=== PATIENT | male | born 1965 | race Caucasian/White ===

== ENCOUNTER 2017-11-29 12:06 | Emergency (ER) | payer BC, SELFPAY ==
[2017-11-29 12:07] VITALS: BP 124/76; PULSE 63; RESP 17; TEMP 36.9; O2SAT 98; BMI 24.3
--- NOTE | 2017-11-29 12:25 | ED.VISSUMM ---
- ER Visit Summary Date of Service: 11/29/17 Chief Complaint: Right eye injury History of Present Illness: The patient is a 51 M who was hit in the right eye with a tree limb while mowing the yard this morning. He was wearing his glasses at the time. He reports mild blurry vision from the right eye. No significant light sensitivity. Physical Examination: Vital signs are unremarkable. Head neck examination reveals no eyelid edema or erythema. The lateral portion of the right eye reveals a large sub-conjunctival hemorrhage. Pupils equal and reactive. Extraocular movements are fully intact. There is no bony tenderness around the eye. Test Results: [] Emergency Department Course and Treatment: Tetracaine is applied to the right eye. Fluorescein is applied with no uptake. Eyes examined under the slit lamp with no evidence of foreign body or ulceration. Patient will get a tetanus update and we will cover him with gentamicin ophthalmic drops for the next 3 days. Treatment Plan: [] Disposition: Discharge Impression: Subconjunctival hemorrhage right eye This note was generated with [employer] dictation software. It may contain incorrect words, spelling, and punctuation that were not noted in review of the chart prior to signing ED Disposition - Plan for ED Patient: Chief Complaint: Eye Problem Referrals: Care Physician,No Primary [Primary Care Provider] -
--- NOTE | 2017-11-29 12:26 | ED.DEP ---
ED Disposition - Plan for ED Patient: Disposition: Home or Assisted Living Chief Complaint: Eye Problem Instructions: ED Eye Injury Subconj Hemorrhage Referrals: Elier Mccormick MD [STAFF PHYSICIAN] - As Needed Additional Instructions: Gentamicin eye drops - 1 drop to right eye 4x/day for the next 3 days.
--- NOTE | 2017-11-29 12:27 | ED.RN ---
VISUAL ACUITY DONE RT EYE, LT EYE, BILATERAL /C GLASSES. ACUITY 20/15
[2017-11-29] MEDS: Diphth,Pertuss(Acell),Tet Vac 0.5 ML Vial IM (12:41)
[2017-11-29] MEDS: Gentamicin Sulfate 1 OPTH.BTL 1 DRP RIGHT EYE (12:41)
== END 2017-11-29 12:54 | disposition home or self-care (01) ==
PROVIDERS: Emergency Provider Emergency Medicine
DX: H11.31 Conjunctival hemorrhage, right eye (principal); Z72.0 Tobacco use
CPT/HCPCS: 90715; 99282

== ENCOUNTER 2023-08-31 15:11 | Emergency (ER) | payer OTHER, SELFPAY ==
[2023-08-31 15:12] VITALS: BP 121/93; PULSE 64; RESP 14; TEMP 36.9; O2SAT 98; BMI 24.5
--- NOTE | 2023-08-31 15:28 | US_ITS ---
INDICATION: PAIN EXAMINATION: Ultrasound US Abdomen Limited (quadrant) TECHNIQUE: Marie scale and color doppler imaging was performed of the right upper quadrant. COMPARISON: FINDINGS: LIVER: 17.5 cm Hepatopedal portal flow. Hepatic veins are patent. There is normal echotexture. No focal hepatic lesion. There is no free fluid. GALLBLADDER AND BILIARY TREE: No shadowing gallstone, pericholecystic fluid or gallbladder wall thickening is demonstrated. Minimal dependent sludge. The proximal common bile duct measures 4 mm, which is within normal limits for the patient''s age. Songraphic Vega''s sign: None RIGHT KIDNEY: 12.2 cm in length. No hydronephrosis. No shadowing nephrolithiasis. Normal cortical echogenicity without focal thinning or scarring. No evidence of cystic or solid mass. PANCREAS: No focal abnormality is demonstrated in the pancreas. No pancreatic ductal dilatation. Ovoid structures with central hyperechogenicity compatible with lymph node measuring 1.5 x 2.8 x 1.0 cm and 1.7 x 1.8 x 2.4 cm adjacent to the pancreas and liver. US/Gallbladder IMPRESSION: Minimal gallbladder sludge without evidence of cholecystitis. Nonspecific mild periportal adenopathy. Consider follow-up multiphasic contrast-enhanced liver CT to further evaluate when clinically able. Electronically Signed: Lg Vela MD at 17:43 EDT ,
--- NOTE | 2023-08-31 15:29 | EX.ED.DYSGE1 ---
HPI History of Present Illness Chief Complaint: General Illness Narrative Narrative: 57-year-old male who denies significant past medical history presents with his significant other mainly because of nausea and vomiting that has had in the last 24 hours. Complains of epigastric to right upper quadrant abdominal pain as well. Food does not necessarily make it worse. He relates history that about a month and a half ago he had a diffuse rash for which she was seen at urgent care. They put him on prednisone. He also took a course of antibiotics. After that had cleared, he states that he had a thorn in his genital region for which she returned to urgent care, and was put on a stronger antibiotic and prednisone again. While he finished that antibiotic last week, 3 days ago, he had return to urgent care and they had discussed that perhaps the rash that he had had was Lyme disease because a month or so ago he had a tick on him. In discussion with the provider there, as he had no primary care provider, they decided to treat him for Lyme disease and he started doxycycline. Within the last 24 hours he has vomited multiple times without any blood in his emesis. He presents mainly because of the epigastric to right upper quadrant pain and the nausea and vomiting which has mildly improved. [facility] Home Medications ?Medication ?Instructions ?Recorded ?Last Taken ?Type doxycycline hyclate 100 mg capsule 100 mg PO BID 14 days #28 caps 08/29/23 Unknown Rx omeprazole 20 mg capsule,delayed 20 mg PO DAILY #30 CAPSULES 08/31/23 Unknown Rx release ondansetron 4 mg disintegrating 4 mg PO Q6H PRN nausea and 08/31/23 Unknown Rx tablet vomiting #15 tabs Allergy/AdvReac Type Severity Reaction Status Date / Time oxycodone AdvReac Hives Verified 08/31/23 15:16 Family History Other Cancer Surgical History H/O discectomy Social History Smoking Status: Current every day smoker tobacco type: cigarettes alcohol intake: current alcohol intake frequency: 0-2 drinks per day Alcohol type: beer ROS ROS ED ROS Narrative Constitutional: No fever, no chills. Sweaty. HEENT: No sore throat. No neck pain. No loss of vision. No rhinorrhea. Cardiovascular: No chest pain. No palpitations. No pedal edema. Respiratory: No cough, no shortness of breath. Abdominal: Epigastric to right upper quadrant abdominal pain. Multiple episodes of nausea and vomiting. No diarrhea. Mild constipation. Genitourinary: No dysuria. No hematuria. Musculoskeletal: No myalgias. No arthralgias. Neurologic: No headaches. No dizziness. No lightheadedness. Skin: No rash. No change in color. Psychiatric: No depression. No anxiety. EXAM Physical Exam Narrative Exam Narrative: Afebrile. Vital signs noted. HEENT: Normocephalic. Atraumatic. PERRL, EOMI. Neck soft and supple. No point tenderness or step off. Cardiovascular: Regular rate and rhythm. No murmurs, rubs, or gallops appreciated. Respiratory: No tachypnea. Lungs clear to auscultation bilaterally. Gastrointestinal: Abdomen soft, mild tenderness palpation in epigastrium and right upper quadrant with normoactive bowel sounds. No rebound or guarding. Negative Vega sign. Neurological: Awake. Alert. Nonfocal, nonlateralizing. Skin: No rash. Normal color. No pallor. Musculoskeletal: No pedal edema. Full range of motion extremities. Const Vital Signs: 08/31/23 15:12 08/31/23 15:41 Temperature 98.5 F Temperature Source Oral Pulse Rate 64 Respiratory Rate 14 Respiratory Effort Normal Non-Labored Respiratory Pattern Normal Blood Pressure 121/93 H Blood Pressure Mean 102 Pulse Ox 98 Oxygen Delivery Method Room Air MDM MDM MDM Narrative Medical decision making narrative: I had a lengthy discussion with the patient and his significant other. They were discussing Lyme disease. Patient is already on treatment with doxycycline. Given his nausea and vomiting, the differential diagnosis is pancreatitis versus cholecystitis/gallstone pancreatitis versus peptic ulcer disease versus gastritis from doxycycline. He has been on prednisone a few times within the last month as well. Patient will be administered a bolus of normal saline and ondansetron. Will check a CBC, CMP, and lipase to help rule out pancreatitis. Ultrasound gallbladder imaging will be obtained as well to help rule out cholecystitis. He has no lower abdominal pain so I do not think he would benefit from CT imaging instead. I have low concern for obstruction as a cause of his nausea and vomiting. I reviewed his laboratory work and he has normal white count of 5.7, hemoglobin normal at 14.5, hematocrit 42.7. Sodium is slightly low at 132 with normal potassium of 3.8 and chloride 96. This may be mild dehydration from his vomiting, but he was bolused normal saline 1 L intravenously has replacement, BUN is low at 6 with creatinine 0.91. AST T is slightly elevated at 38 with ALT of 82. This is also nonspecific slight elevation. Glucose elevated at 119 with a normal anion gap of 7. Total bilirubin is normal at 0.30. Alk phos also normal at 85. Lipase is normal at 40 so I doubt pancreatitis. Urinalysis is negative for infection. I do not feel antibiotics are indicated, and additionally he is already on doxycycline. I reviewed the radiology report of the gallbladder ultrasound which does comment on gallbladder sludge, but no pericholecystic fluid. Common bile duct normal at 4 mm. There is no enlarged lymph node noted near the liver/pancreas, but no noted pancreatic mass. Radiology suggests outpatient CT. Upon repeat examination, his abdomen remains soft. He was having epigastric pain and cramping. I feel he probably has more of a gastritis as he has been on both prednisone, Medrol Dosepak, and this is his third round of antibiotics for various things. I feel he be discharged to follow-up with his primary care provider. I wrote him prescriptions for both omeprazole, and for Zofran. He was also referred to gastroenterology as needed. At this point in time, I do not feel he requires observation or admission. I feel he can be discharged to follow-up. Return instructions to the emergency department were reviewed. Disposition is discharged home in stable condition. History & Record Review Discussion w/independent historian: Patient Lab Data Attestation: I reviewed the patient's lab results. Labs: Laboratory Results - last 24 hr 08/31/23 08/31/23 15:40 16:29 WBC 5.7 RBC 4.86 Hgb 14.5 Hct 42.7 MCV 87.9 MCH 29.8 MCHC 34.0 RDW Std Deviation 40.7 RDW Coeff of Manohar 12.6 Plt Count TNP MPV 11.7 Immature Gran % (Auto) 0.500 Neut % (Auto) 54.2 Lymph % (Auto) 32.3 Lyman % (Auto) 10.6 H Eos % (Auto) 2.1 Baso % (Auto) 0.3 Absolute Neuts (auto) 3.1 Absolute Lymphs (auto) 1.85 Nucleated RBC % 0 Differential Comment SCANNED Platelet Estimate ADEQUATE Sodium 132 L Potassium 3.8 Chloride 96 L Carbon Dioxide 29.0 Anion Gap 7 BUN 6 L Creatinine 0.91 Estim Creat Clear Calc 90.25 Est GFR (MDRD) Af Amer 110 Est GFR (MDRD) Non-Af 91 BUN/Creatinine Ratio 6.6 L Glucose 119 H Calcium 9.6 Total Bilirubin 0.30 AST 38 H ALT 82 H Alkaline Phosphatase 85 Total Protein 7.8 Albumin 3.2 Globulin 4.6 H Albumin/Globulin Ratio 0.7 L Lipase 40 Urine Color Yellow Urine Clarity Clear Urine pH 6.5 Ur Specific [place] 1.010 Urine Protein Negative Urine Glucose (UA) Normal Urine Ketones Negative Urine Occult Blood Negative Urine Nitrite Negative Urine Bilirubin Negative Urine Urobilinogen Normal Ur Leukocyte Esterase Negative Urine RBC 0 SEEN Urine WBC 0 SEEN Ur Squamous Epith Cells 0 SEEN Urine Bacteria 0 SEEN Urine Mucus 0 SEEN Radiography Diagnostic Testing: Clinical Impression(s) from Imaging Studies Gallbladder Ultrasound 08/31/23 15:28 IMPRESSION: Minimal gallbladder sludge without evidence of cholecystitis. Nonspecific mild periportal adenopathy. Consider follow-up multiphasic contrast-enhanced liver CT to further evaluate when clinically able. Electronically Signed: Lg Vela MD at 17:43 EDT Reading Location ID and State: [address] [place] [address] Tel , Service support , Discharge Plan Triage Chief Complaint: General Illness ED Provider: Nito Ayon Dx/Rx/DC Orders Clinical Impression: Nausea and vomiting, Gastritis, Epigastric pain Instructions: ED Gastritis (Adult) Prescriptions: New omeprazole 20 mg capsule,delayed release(DR/EC) 20 mg PO DAILY Qty: 30 0RF ondansetron 4 mg tablet,disintegrating 4 mg PO Q6H PRN (Reason: nausea and vomiting) Qty: 15 0RF No Action doxycycline hyclate 100 mg capsule 100 mg PO BID 14 Days Qty: 28 0RF Primary Care Provider: Care Physician,No Primary Referrals: Chelsea Rhodes MD [Med Staff - Active Staff] - Keep Javed appointment Friend,Thai, DO [Med Staff - Active Staff] - As soon as possible Care Physician,No Primary [Primary Care Provider] - Activity Restrictions/Additional Instructions: Continue your doxycycline as previously directed but make sure that you are taking it with food. Return with increased vomiting, new or worsening symptoms. Print Language: Thai Disposition Disposition: Home, Self Care
[2023-08-31] MEDS: 0.9% Normal Saline (1000mL) 1,000 ML 999 ML IV (15:42)
[2023-08-31] MEDS: Ondansetron 4 MG/2 ML Vial IV (15:43)
[2023-08-31 15:51] LABS: Absolute Lymphocyte Count 1.85 X10^3/uL (0.83-4.51); Absolute Neutrophil Count 3.1 X10^3/uL (2.0-7.7); Basophil# 0.02 X10^3/uL; Basophil% 0.3 % (0-1); Eosinophil# 0.12 X10^3/uL; Eosinophils% 2.1 % (0-5); Hematocrit 42.7 % (40-54); Hemoglobin 14.5 g/dL (13.0-16.5); Lymphocyte # 1.85 X10^3/ul (0.83-4.51); Lymphocyte % 32.3 % (19-41); Mean Corpuscular Hgb 29.8 pg (27.0-32.0); Mean Corpuscular Volume 87.9 fL (80-94); Mean Platelet Vol. 11.7 fl (6.2-12.0); Monocyte# 0.61 X10^3/uL; Monocyte% 10.6 % (0-10); NRBC Flagged by Analyzer 0 % (0-5); Neutrophil % 54.2 % (47-70); POSITIVE COUNT YES; POSITIVE MORPHOLOGY YES; RBC Distribution Width CV 12.6 % (11.6-14.6); RBC Distribution Width SD 40.7 fl (35.1-43.9); Red Blood Count 4.86 M/mm3 (4.6-6.2); White Blood Count 5.7 K/mm3 (4.4-11.0)
[2023-08-31 15:54] LABS: Differential Indicated SCAN CRITERIA MET
[2023-08-31 16:10] LABS: ALB/GLOB Ratio 0.7 RATIO (0.9-2.4); AST(SGOT) 38 U/L (15-37); Alanine Aminotransfer ALT/SGPT 82 U/L (16-61); Albumin, Serum 3.2 g/dL (3.2-5.0); Alkaline Phosphatase 85 U/L (45-117); Anion Gap 7 (5-15); BUN 6 mg/dL (7-18); BUN/Creat Ratio 6.6 RATIO (10-20); Calcium,Total 9.6 mg/dL (8.5-10.1); Chloride 96 mmol/L (98-107); Creatinine, Serum 0.91 mg/dL (0.70-1.30); EST Glomerular Filtration Rate 91 mL/min (>60); Est Glom Filt Rate - Afr Amer 110 mL/min (>60); Estimated Creatinine Clearance 90.25 ml/min; Globulin 4.6 g/dL (2.2-4.2); Glucose 119 mg/dL (74-106); Lipase 40 U/L (13-75); Potassium 3.8 mmol/L (3.5-5.1); Protein, Total 7.8 g/dL (6.4-8.2); Sodium Level 132 mmol/L (136-145)
[2023-08-31 16:25] LABS: Differential Comment SCANNED; Platelet Estimate ADEQUATE (ADEQ)
[2023-08-31 16:33] LABS: Bacteria 0 SEEN /hpf (None Seen); Mucous, Urine 0 SEEN /hpf (<or=2+); Red Blood Cells-Urine 0 SEEN /hpf (0-5); Squamous Epithelial Cells - UA 0 SEEN /hpf (0-5); White Blood Cells 0 SEEN /hpf (0-5)
[2023-08-31 16:34] LABS: Color, Urine Yellow (Yellow); Glucose, Dipstick Normal (Normal); Ketone-Dipstick Negative (Negative); Leukocyte Esterase-Dipstick Negative /ul (Negative); Nitrite-Dipstick Negative (Negative); Occult Blood-Urine Negative /ul (Negative); Protein-Dipstick Negative (Negative); Urine Bilirubin Dipstick Negative (Negative); Urine Clarity Clear (Clear); Urine Urobilinogen Normal (Normal); Urine pH 6.5 (5.0 - 8.0)
[2023-08-31] MEDS: Mag Hydrox/Al Hydrox/Simeth 30 ML UDC PO (17:31)
[2023-08-31] MEDS: Lidocaine 2% Viscous15 ML UDC 15 ML PO (17:31)
[2023-08-31 18:05] VITALS: BP 124/78; PULSE 60; RESP 17; TEMP 36.8; O2SAT 96
== END 2023-08-31 18:09 | disposition home or self-care (01) ==
PROVIDERS: Emergency Provider Emergency Medicine; Visit Provider Emergency Medicine
DX: R11.2 Nausea with vomiting, unspecified (principal); K29.70 Gastritis, unspecified, without bleeding; F17.210 Nicotine dependence, cigarettes, uncomplicated; R10.13 Epigastric pain
CPT/HCPCS: 76705; 80053; 81001; 83690; 85025; 96361; 96374; 99284; J7030; A4216; J2405

== ENCOUNTER → 2023-09-12 | Outpatient (CLI) | payer OTHER, SELFPAY ==
[2023-09-12 11:02] LABS: Cholesterol 231 mg/dL (200); Hemoglobin A1c 5.9 % (3.8-5.6); High Density Lipoprotein 38 mg/dL; PSA,Total - Annual Screen 1.34 ng/mL (0.00-4.00); Thyroid Stim Hormone (TSH) 2.69 uIU/mL (0.358-3.74); Triglycerides 123 mg/dL; Very Low Density Lipoprotein 25 mg/dL (5-40)
[2023-09-12 11:47] LABS: HIV - WCH Non-Reactive (Nonreactive); Hepatitis C Antibody Non-Reactive (Nonreactive)
[2023-09-18 11:08] LABS: Testosterone, % Free 2.85 % (1.50-4.20); Testosterone, Free 17.78 ng/dL (5.00-21.00); Testosterone, Total 624 ng/dL (264-916)
== END | disposition home or self-care (01) ==
PROVIDERS: PCP Internal Medicine; Referring Provider Nurse Practitioner; Visit Provider Nurse Practitioner
DX: Z00.00 Encounter for general adult medical examination without abnormal findings (principal); R53.83 Other fatigue; R74.8 Abnormal levels of other serum enzymes
CPT/HCPCS: 36415; 80061; 83036; 84153; 84402; 84403; 84443; 86703; 86803; G0103

== ENCOUNTER → 2023-09-25 | Outpatient (CLI) | payer OTHER, SELFPAY ==
--- NOTE | 2023-09-25 07:00 | CT_ITS ---
STUDY: CT ABDOMEN AND PELVIS WITH AND WITHOUT CONTRAST REASON FOR EXAM: Male, 57 years old. ABDOMINAL PAIN. PERIPORTAL ADENOPATHY RADIATION DOSAGE (If Supplied By Facility): CTDIvol = ( 12.26 ) mGy, DLP = ( 1466.36 ) mGycm TECHNIQUE: Transaxial images were obtained from the dome of the diaphragm to the symphysis pubis without oral contrast. IV 100mL Isovue-370 was administered. Sagittal and coronal images were reconstructed. Individualized dose optimization techniques were used for this CT. COMPARISON: None. FINDINGS: The visualized lung bases are unremarkable. The visualized portions of the heart are within normal limits. There is a 7 mm cyst in the superior aspect of the right lobe of the liver. Normal gallbladder and extrahepatic biliary system. Normal spleen. Normal pancreas. Normal bilateral adrenal glands. Normal right kidney. Findings suggestive of 1.6 cm x 1.8 cm cyst in the upper anterior pole of the left kidney. There is a small hiatal hernia. Normal small intestine. Normal colon. The appendix is visualized and appears normal. There is diffuse atherosclerotic calcification of the abdominal aorta, without a demonstrated aneurysm. Normal inferior vena cava. Normal retroperitoneum. Normal urinary bladder. Normal abdominal wall. There are diffuse degenerative changes of the visualized lumbar spine. 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 CT/CT Abd/Pelvis W/WO Contrast IMPRESSION: 7 mm cyst in the superior aspect of the right lobe of liver. Left renal cyst. No definite periportal adenopathy is seen. Electronically Signed: Max Fontenot MD at 9:40 EDT ,
--- NOTE | 2023-09-25 07:20 | CT_ITS ---
STUDY: LOW DOSE CT LUNG CANCER SCREENING REASON FOR EXAM: Male, 57 years old. SMOKER X 30 YEARS. 1.5 PPD RADIATION DOSAGE (If Supplied By Facility): CTDIvol = ( 3.02 ) mGy, DLP = ( 103.82 ) mGycm TECHNIQUE: No contrast was administered. Low dose technique was utilized (average mAS-38 and kVp 120). 1.25 mm axial source images with a slice interval of 1.25-mm were reconstructed in lung windows. 2.5 mm axial source images with a slice interval of 2.5-mm were reconstructed in lung windows. 5.0 mm axial source images with a slice interval of 5.0-mm were reconstructed in soft tissue windows. COMPARISON: None. NODULES: No suspicious nodules are seen. Emphysema: Mild degree of emphysematous changes. Endobronchial lesion: None Aorta: Mild atherosclerotic calcified plaques of the aortic arch. CORONARY ARTERIES: Coronary artery calcification is seen. Heart: Unremarkable Pulmonary artery: Unremarkable Mediastinal nodes: Small mediastinal lymph nodes. Other chest and abdominal findings: CT/Low Dose CT Lung Screening IMPRESSION: Lung-RADS category 2 - Continue annual screening with LDCT in 12 months. IMPORTANT NOTES FOR USE: ACR Lung-RADS Version 1.1 Assessment Categories Release Date: 2018 Category: Coded 0-4 bases on nodule(s) with highest degree of suspicion. Negative screen is defined as categories 1 and 2; a positive screen is defined as categories 3 and 4. Category 3 and 4A nodules that are unchanged on interval CT should be coded as category 2, and individuals returned to screening in 12 months. Category 4X: Category 3 or 4 nodules with additional imaging findings that increase the suspicion of lung cancer, such as spiculation, GGN that doubles in size in 1 year, enlarged lymph notes, etc. Category Modifiers: S (significant finding unrelated to lung cancer) Electronically Signed: Max Fontenot MD at 9:57 EDT ,
== END | disposition home or self-care (01) ==
PROVIDERS: PCP Internal Medicine; Referring Provider Physician Assistant; Visit Provider Physician Assistant
DX: Z12.2 Encounter for screening for malignant neoplasm of respiratory organs (principal); R10.13 Epigastric pain
CPT/HCPCS: 71271; 74178; Q9967

== ENCOUNTER → 2023-11-06 | Outpatient (CLI) | payer OTHER, SELFPAY ==
--- NOTE | 2023-11-06 16:16 | STRESSREP_ITS ---
Stress Test Report Date: 11/06/2023 Procedure: Exercise tolerance test/imaging study Indications: Chest pain Consent: Per the patient Procedure: The patient exercised on a Freeman protocol for 10 minutes achieving a peak heart rate of 166 bpm (103% predicted maximal heart rate) with a peak blood pressure 202/70 mmHg and a peak MET capacity of 13.4 METs. The baseline ECG demonstrated sinus bradycardia. The peak exercise ECG demonstrated no significant ischemic changes. EKG during recovery revealed no significant ischemic changes [There were no cardiac dysrhythmias pretest, during exercise, or recovery]. The functional capacity was considered excellent for age. There was [no complaint of chest discomfort during exercise or recovery]. The examination was discontinued secondary to achieving target heart rate. Impression: 1. Technically adequate (percent predicted maximal heart rate greater than 85%) exercise tolerance test 2. Stress test is negative for exercise-induced EKG changes of ischemia 3. The test test is negative for exercise-induced chest pain 4. Functional capacity is excellent for age 5. Nuclear images pending Myocardial perfusion imaging study: Technique: The patient was injected with 11.9 mCi of technetium 99m Cardiolite and subsequently rest SPECT Cardiolite nuclear imaging was obtained in the h orizontal long, vertical long, and short axis views. The patient exercised on a Freeman protocol. Please see above for details. The patient was injected with 34.2 mCi of technetium 99m Cardiolite and subsequently stress SPECT Cardiolite nuclear imaging was obtained in the horizontal long, vertical long, and short axis views. A gated Cardiolite study at peak stress was obtained. Interpretation: Rest and stress SPECT Cardiolite nuclear imaging status post realignment, normalization, and attenuation correction, demonstrates no evidence of significant ischemia or infarction. The gated Cardiolite study demonstrates no significant regional wall motion abnormalities. The reported LVEF is 65%. Impression: 1. There is no evidence of significant ischemia or infarction. 2. The gated Cardiolite study reports an LVEF of 65%. This note was generated with [employer] software. It may contain incorrect words, spelling, and punctuation that were not noted in checking the note before signing.
== END | disposition home or self-care (01) ==
LOC: CVS 06:20
PROVIDERS: PCP Internal Medicine; Referring Provider Nurse Practitioner; Visit Provider Nurse Practitioner
DX: R07.9 Chest pain, unspecified (principal)
CPT/HCPCS: 78452; 93017; A9500; A4216

== ENCOUNTER 2023-11-18 14:39 | Emergency (ER) | payer OTHER, SELFPAY ==
[2023-11-18] VITALS (8 sets, daily range): BP systolic 131–146; BP diastolic 84–102; PULSE 49–80; RESP 14–18; TEMP 35.9–36.6; O2SAT 97–100; BMI 25.1
--- NOTE | 2023-11-18 14:45 | EKG12_ITS ---
Test Reason : Blood Pressure : / mmHG Vent. Rate : 058 BPM Atrial Rate : 058 BPM P-R Int : 160 ms QRS Dur : 092 ms QT Int : 424 ms P-R-T Axes : 083 084 074 degrees QTc Int : 416 ms Sinus bradycardia Otherwise normal ECG Confirmed by ALEC FRANCES, MITCH ([id number]), commercial production editor GENESIS WADE ([id number]) on 11/20/2023 1:43:28 PM Referred By: Confirmed By:MITCH MICHAEL MD
[2023-11-18 15:09] LABS: Absolute Neutrophil Count 5.2 X10^3/uL (2.0-7.7); Basophil# 0.05 X10^3/uL; Basophil% 0.6 % (0-1); Eosinophil# 0.17 X10^3/uL; Hematocrit 42.2 % (40-54); Hemoglobin 14.4 g/dL (13.0-16.5); Lymphocyte % 27.3 % (19-41); Mean Corp Hgb Conc 34.1 g/dL (32-36); Mean Corpuscular Hgb 30.3 pg (27.0-32.0); Mean Corpuscular Volume 88.8 fL (80-94); Mean Platelet Vol. 10.9 fl (6.2-12.0); Monocyte# 0.73 X10^3/uL; Monocyte% 8.7 % (0-10); NRBC Flagged by Analyzer 0 % (0-5); Neutrophil # 5.16 X10^3/uL (2.7-7.7); Neutrophil % 61.3 % (47-70); Platelet Count 215 K/mm3 (150-450); RBC Distribution Width CV 13.7 % (11.6-14.6); RBC Distribution Width SD 44.9 fl (35.1-43.9); Red Blood Count 4.75 M/mm3 (4.6-6.2); White Blood Count 8.4 K/mm3 (4.4-11.0)
[2023-11-18 15:19] LABS: Prothrombin Time (Protime)PT. 13.4 SECONDS (11.7-14.9)
[2023-11-18 15:20] LABS: Partial Thromboplast Time 31.8 Seconds (24.1-36.2)
[2023-11-18 15:21] LABS: Anion Gap 6 (5-15); BUN 13 mg/dL (7-18); BUN/Creat Ratio 14.4 RATIO (10-20); Calcium,Total 9.5 mg/dL (8.5-10.1); Chloride 104 mmol/L (98-107); EST Glomerular Filtration Rate 91 mL/min (>60); Est Glom Filt Rate - Afr Amer 110 mL/min (>60); Glucose 129 mg/dL (74-106); Potassium 3.6 mmol/L (3.5-5.1); Sodium Level 138 mmol/L (136-145)
--- NOTE | 2023-11-18 17:11 | NURSING ---
NO OLD EKG
--- NOTE | 2023-11-18 17:20 | RAD_ITS ---
STUDY: X-RAY CHEST REASON FOR EXAM: Male, 57 years old. Stroke TECHNIQUE: AP portable COMPARISON: None. FINDINGS: The lungs are clear and expanded. There is no demonstrated pleural abnormality. Normal size heart. Normal mediastinum and yolis. Normal visualized pulmonary arteries. Normal visualized aortic arch and descending thoracic aorta. Normal visualized thoracic spine. Normal visualized ribs, clavicles, and shoulders. There is no demonstrated abnormality of the visualized soft tissue structures of the upper abdomen. RAD/Chest 1 View (Portable) IMPRESSION: Normal x-ray examination of the chest. Electronically Signed: José Demarco MD at 18:07 EDT ,
--- NOTE | 2023-11-18 17:46 | CT_ITS ---
STUDY: CT BRAIN WITHOUT CONTRAST REASON FOR EXAM: Male, 57 years old. disequlibrium RADIATION DOSAGE (If Supplied By Facility): CTDIvol = ( 44.99 ) mGy, DLP = ( 812.98 ) mGycm TECHNIQUE: Transaxial CT imaging of the brain was performed without administration of intravenous contrast material. Individualized dose optimization techniques were used for this CT. COMPARISON: No relevant priors. FINDINGS: Normal soft tissue structures. Normal calvarium. Normal size ventricles and extra-axial spaces for the patient''s age. Normal white matter tracts of the cerebral hemispheres. Normal basal ganglia and thalami. Normal brainstem. Normal cerebellum. There is no intracranial hemorrhage. There are no findings of an acute ischemic infarction. Normal visualized paranasal sinuses. CT/Brain/Head without Contrast IMPRESSION: Normal unenhanced CT scan of the brain. If concern for acute infarct MRI recommended Electronically Signed: José Demarco MD at 19:05 EDT ,
--- NOTE | 2023-11-18 18:58 | EDS_ITS ---
HPI History of Present Illness Chief Complaint: Neuro S/Sx Narrative Narrative: 57-year-old male presents with disequilibrium and feeling like he has an abnormal gait for the last 4 days. He states his symptoms started on Friday and have been relatively constant. He denies any fevers or chills, no headache, no chest pain or shortness of breath, no other symptoms. He states when he feels like he is walking he is off balance and almost drunk. He states he called his primary care provider and they were unable to see him and they told him to go to urgent care. He states urgent care sent him here. He states he has no other symptoms except for even when he went to work today and when he was walking he felt off balance. No recent fevers or chills, no nausea or vomiting. [facility] Medical History Gallbladder sludge Irritant contact dermatitis due to plant Skin irritation Fatigue Screening for lung cancer Lesion of penis Elevated liver enzymes Tobacco abuse Tinnitus Renal cyst Coronary artery calcification Hyperlipidemia Chest pain Liver cyst Home Medications ?Medication ?Instructions ?Recorded ?Last Taken ?Type cyanocobalamin (vitamin B-12) 1,000 mcg PO BID 10/10/23 Unknown History 1,000 mcg capsule lactobacillus combination no.9 4 4,000 mmu cells PO DAILY 10/10/23 Unknown His tory billion cell capsule (Adult 50 Plus Probiotic) multivitamin (Daily Multi-Vitamin 1 tab PO DAILY 10/10/23 Unknown History tablet) omega 9-ydy-gis-fish oil 60 mg-90 1 cap PO DAILY 10/10/23 Unknown History mg-500 mg capsule (Fish Oil) varenicline 0.5 mg (11)-1 mg (42) See Rx Instructions PO PER PKG DIR 10/10/23 Unknown Rx tablets in a dose pack #53 tabs Allergy/AdvReac Type Severity Reaction Status Date / Time oxycodone AdvReac Hives Verified 11/18/23 14:40 Family History Mother Breast cancer Afib Brother Diabetes CVA (cerebral vascular accident) Other Cancer Surgical History H/O discectomy Social History adopted: No household members: none number of children: 2 current occupational status: employed current occupation: [employer] pets and animals: No sexually active: Yes Smoking Status: Current every day smoker tobacco type: cigarettes Tobacco: How many years used: 37 alcohol intake: former substance use type: does not use caffeine: Yes (3) Type: coffee frequency: daily do you feel safe at home: Yes ROS ROS ED ROS Narrative Constitutional: No fever, no chills. HEENT: No sore throat. No neck pain. No loss of vision. No rhinorrhea. Cardiovascular: No chest pain. No palpitations. No pedal edema. Respiratory: No cough, no shortness of breath. Abdominal: No abdominal pain. No nausea. No vomiting. Genitourinary: No dysuria. No hematuria. Musculoskeletal: No myalgias. No arthralgias. Neurologic: No headaches. No dizziness. No lightheadedness. Feels off balance when walking. Skin: No rash. No change in color. Psychiatric: No depression. No anxiety. EXAM Physical Exam Narrative Exam Narrative: Afebrile. Vital signs noted. HEENT: Normocephalic. Atraumatic. PERRL, EOMI. Neck soft and supple. No point tenderness or step off. Cardiovascular: Regular rate and rhythm. No murmurs, rubs, or gallops appreciated. Respiratory: No tachypnea. Lungs clear to auscultation bilaterally. Gastrointestinal: Abdomen soft, nontender, with normoactive bowel sounds. No rebound or guarding. Neurological: Awake. Alert. Nonfocal, nonlateralizing. Cerebellar functioning is normal with normal [id number] and normal [id number]-blor. Skin: No rash. Normal color. No pallor. Musculoskeletal: No pedal edema. Full range of motion extremities. Const Vital Signs: 11/18/23 14:40 11/18/23 17:19 11/18/23 17:20 Temperature 96.7 F L Temperature Source Temporal Pulse Rate 80 55 L Pulse Rate [Lying] Pulse Rate [Sitting (for 1 minute prior to obtaining)] Pulse Rate [Standing (for 1 minute prior to obtaining)] Respiratory Rate 16 15 Blood Pressure 142/93 H 137/99 H Blood Pressure [Lying] Blood Pressure [Sitting (for 1 minute prior to obtaining)] Blood Pressure [Standing (for 1 minute prior to obtaining)] Blood Pressure Mean 109 111 Blood Pressure Mean [Lying] Blood Pressure Mean [Sitting (for 1 minute prior to obtaining)] Blood Pressure Mean [Standing (for 1 minute prior to obtaining)] Pulse Ox 97 98 Oxygen Delivery Method Room Air Room Air Room Air 11/18/23 18:00 11/18/23 18:00 11/18/23 18:47 Temperature Temperature Source Pulse Rate 56 L 53 L Pulse Rate [Lying] Pulse Rate [Sitting (for 1 minute prior to obtaining)] Pulse Rate [Standing (for 1 minute prior to obtaining)] Respiratory Rate 15 15 Blood Pressure 140/84 H 140/84 H 142/88 H Blood Pressure [Lying] Blood Pressure [Sitting (for 1 minute prior to obtaining)] Blood Pressure [Standing (for 1 minute prior to obtaining)] Blood Pressure Mean 101 101 105 Blood Pressure Mean [Lying] Blood Pressure Mean [Sitting (for 1 minute prior to obtaining)] Blood Pressure Mean [Standing (for 1 minute prior to obtaining)] Pulse Ox 100 Oxygen Delivery Method 11/18/23 18:49 11/18/23 18:51 11/18/23 19:00 Temperature Temperature Source Pulse Rate 62 49 L Pulse Rate [Lying] 53 L Pulse Rate [Sitting (for 1 minute prior to obtaining)] 55 L Pulse Rate [Standing (for 1 minute prior to obtaining)] 60 Respiratory Rate 16 14 Blood Pressure 138/84 H 146/84 H Blood Pressure [Lying] 140/84 H Blood Pressure [Sitting (for 1 minute prior to obtaining)] 142/88 H Blood Pressure [Standing (for 1 minute prior to obtaining)] 138/84 H Blood Pressure Mean 98 104 Blood Pressure Mean [Lying] 102 Blood Pressure Mean [Sitting (for 1 minute prior to obtaining)] 106 Blood Pressure Mean [Standing (for 1 minute prior to obtaining)] 102 Pulse Ox 97 Oxygen Delivery Method MDM MDM MDM Narrative Medical decision making narrative: Differential diagnosis includes intravascular volume depletion versus vertigo versus stroke. I have low suspicion for stroke as his cerebellar functioning is normal, and he essentially has an NIH stroke scale of 0. ED protocol labs were obtained and reviewed. EKG was obtained and interpreted by myself independently as sinus bradycardia at 58 bpm without ectopy or acute ST changes. No STEMI. Orthostatics are negative. I reviewed his laboratory work and he has normal white count of 8.4 with hemoglobin normal at 14.4, hematocrit 42.2, platelet count normal at 215. Coagulation studies are negative with an INR of 1.0 and a PTT of 31.8. BUN normal at 13 with creatinine 0.90, no evidence of dehydration. Glucose is elevated at 129 with an anion gap normal at 6. Sodium normal at 138 and potassium normal at 3.6. I obtained a CT of the brain, and reviewed the radiology report. There is no evidence of an acute process. Additionally, chest x-ray 1 view interpreted by myself independently shows no pneumonia or pneumothorax. I reviewed the radiology report which confirms my independent interpretation. Upon repeat examination at approximately 7:45 PM, he is resting comfortably on the cot. His significant other is at the bedside and she states that they went somewhere and he was walking as if he were drunk, and almost tripped and fell with an unsteady gait. He will be ambulated here. This does not sound like he has peripheral vertigo where meclizine would be helpful as he is not having any spinning sensation and is really only when he is standing and walking. RN reports the patient had a steady gait, and patient stated to me that he felt fine. Is very only intermittent and unpredictable when it happens when he is walking. At this point in time, I feel he can be discharged to follow-up with his primary care provider as he has a steady gait here. Return instructions to the emergency department were reviewed. Disposition is discharged home in stable condition. History & Record Review Discussion w/independent historian: Patient Lab Data Attestation: I reviewed the patient's lab results. Labs: Laboratory Results - last 24 hr 11/18/23 15:00 WBC 8.4 RBC 4.75 Hgb 14.4 Hct 42.2 MCV 88.8 MCH 30.3 MCHC 34.1 RDW Std Deviation 44.9 H RDW Coeff of Manohar 13.7 Plt Count 215 MPV 10.9 Immature Gran % (Auto) 0.100 Neut % (Auto) 61.3 Lymph % (Auto) 27.3 Orange % (Auto) 8.7 Eos % (Auto) 2.0 Baso % (Auto) 0.6 Absolute Neuts (auto) 5.2 Absolute Lymphs (auto) 2.30 Nucleated RBC % 0 PT 13.4 INR 1.0 APTT 31.8 Sodium 138 Potassium 3.6 Chloride 104 Carbon Dioxide 28.0 Anion Gap 6 BUN 13 Creatinine 0.90 Est GFR (MDRD) Af Amer 110 Est GFR (MDRD) Non-Af 91 BUN/Creatinine Ratio 14.4 Glucose 129 H Calcium 9.5 Radiography Diagnostic Testing: Clinical Impression(s) from Imaging Studies Chest X-Ray 11/18/23 17:20 IMPRESSION: Normal x-ray examination of the chest. Electronically Signed: José Demarco MD at 18:07 EDT Reading Location ID and State: [facility] / [place] Tel [phone], Service support , Brain CT 11/18/23 17:46 IMPRESSION: Normal unenhanced CT scan of the brain. If concern for acute infarct MRI recommended Electronically Signed: José Demarco MD at 19:05 EDT , Discharge Plan Triage Chief Complaint: Neuro S/Sx ED Provider: Nito Ayon Dx/Rx/DC Orders Clinical Impression: Disequilibrium, Unsteady gait when walking Instructions: ED Dizziness, Uncertain Cause, ED Fall Prevention Prescriptions: No Action multivitamin [Daily Multi-Vitamin] Tablet 1 tab PO DAILY Adult 50 Plus Probiotic 4 billion cell capsule 4,000 mmu cells PO DAILY Rx Instructions: administer with a meal omega 7-rib-mye-fish oil [Fish Oil] 60-90-500 mg capsule 1 cap PO DAILY cyanocobalamin (vitamin B-12) 1,000 mcg capsule 1,000 mcg PO BID varenicline 0.5 mg (11)- 1 mg (42) tablets,dose pack See Rx Instructions PO PER PKG DIR Qty: 53 0RF Rx Instructions: PO PER PKG DIR Start medication then quit smoking between days 8-35 Primary Care Provider: Chelsea Rhodes Referrals: Chelsea Rhodes MD [Primary Care Provider] - 1-2 Days if not improving Activity Restrictions/Additional Instructions: Return with headache, return of unsteady gait, new or worsening symptoms. Print Language: Persian Disposition Disposition: Home, Self Care
== END 2023-11-18 20:09 | disposition home or self-care (01) ==
PROVIDERS: Emergency Provider Emergency Medicine; PCP Internal Medicine; Visit Provider Emergency Medicine
DX: R42 Dizziness and giddiness (principal); R26.81 Unsteadiness on feet; F17.210 Nicotine dependence, cigarettes, uncomplicated; I25.10 Atherosclerotic heart disease of native coronary artery without angina pectoris
CPT/HCPCS: 70450; 71045; 80048; 85025; 85610; 85730; 93005; 99285

== ENCOUNTER → 2023-12-04 | Outpatient (CLI) | payer OTHER, SELFPAY ==
[2023-12-04 13:04] LABS: Erythrocyte Sedimentation Rate 19 mm/hr (0-20)
[2023-12-04 13:08] LABS: AST(SGOT) 28 U/L (15-37); Alanine Aminotransfer ALT/SGPT 34 U/L (16-61); Albumin, Serum 4.1 g/dL (3.2-5.0); Alkaline Phosphatase 75 U/L (45-117); Bilirubin, Direct 0.13 mg/dL (0.00-0.30); Cholesterol 234 mg/dL (200); High Density Lipoprotein 57 mg/dL; Protein, Total 8.1 g/dL (6.4-8.2); Triglycerides 79 mg/dL
[2023-12-04 13:09] LABS: CRP < 2.90 mg/L (0.0-3.0); Very Low Density Lipoprotein 16 mg/dL (5-40)
[2023-12-10 16:10] LABS: Lyme IgG P18 Ab Present (.); Lyme IgG P23 Ab Absent (.); Lyme IgG P28 Ab Absent (.); Lyme IgG P30 Ab Absent (.); Lyme IgG P39 Ab Present (.); Lyme IgG P41 Ab Absent (.); Lyme IgG P45 Ab Absent (.); Lyme IgG P58 Ab Present (.); Lyme IgG P66 Ab Absent (.); Lyme IgG P93 Ab Present (.); Lyme IgG WB Interpretation Negative (.); Lyme IgM P23 Ab Present (.); Lyme IgM P39 Ab Absent (.); Lyme IgM P41 Ab Absent (.); Lyme IgM WB Interpretation Negative (.)
== END | disposition home or self-care (01) ==
LOC: BIMLAB 11:10
PROVIDERS: PCP Internal Medicine; Referring Provider Nurse Practitioner; Visit Provider Nurse Practitioner
DX: R42 Dizziness and giddiness (principal); E78.5 Hyperlipidemia, unspecified; Z86.19 Personal history of other infectious and parasitic diseases
CPT/HCPCS: 36415; 80061; 80076; 85652; 86140; 86617; 87040

== ENCOUNTER → 2023-12-18 | Outpatient (CLI) | payer OTHER, SELFPAY ==
[2023-12-18 18:45] LABS: Syphilis Antibodies Non-reactive
== END | disposition home or self-care (01) ==
PROVIDERS: PCP Internal Medicine; Referring Provider Internal Medicine Infectious Disease; Visit Provider Internal Medicine Infectious Disease
DX: R21 Rash and other nonspecific skin eruption (principal); W57.XXXA Bitten or stung by nonvenomous insect and other nonvenomous arthropods, initial encounter
CPT/HCPCS: 36415; 86780

== ENCOUNTER → 2023-12-29 | Outpatient (CLI) | payer OTHER, SELFPAY ==
--- NOTE | 2023-12-29 06:36 | MRI_ITS ---
STUDY: MRI BRAIN WITH AND WITHOUT CONTRAST REASON FOR EXAM: Male, 58 years old. dysequilibrium, nystagmus TECHNIQUE: Standardized multiplanar fat and water weighted pulse sequences were obtained. IV 15ml clariscan was administered for the contrast portion of the examination. COMPARISON: CT 11/18/2023 FINDINGS: Normal size of the ventricles and extra-axial spaces for the patient''s age. Normal white matter tracts of the supratentorial brain. There is no evidence for recent intracranial ischemia or other cause of cytotoxic edema on diffusion weighted imaging (DWI). Normal T2* images of the brain without demonstrated susceptibility artifact. There is no demonstrated hemosiderin stain. Normal bilateral basal ganglia. Normal thalami. There is no extra-axial fluid accumulation. Normal flow voids within the major intracranial circulation suggesting patency by spin echo criteria. Normal venous enhancement. There is no enhancing intra-axial or extra-axial abnormality. Normal sella turcica, pituitary gland, infundibular stalk, optic chiasm and hypothalamus. Normal tectal plate and pineal gland. Normal midbrain, heri and medulla. Normal cerebellum. Normal basal cisterns. Normal bilateral temporal bones. Normal bilateral internal auditory canals. No demonstrated orbital abnormality, within the constraints of a routine brain study. Normal visualized paranasal sinuses. Normal calvarium and skull base. Normal visualized soft tissue structures. Normal visualized upper cervical spine. MRI/Brain W/WO Contrast IMPRESSION: Normal unenhanced and enhanced MRI of the brain. Electronically Signed: Arpan Leigh MD at 8:20 EDT ,
== END | disposition home or self-care (01) ==
PROVIDERS: PCP Internal Medicine; Referring Provider Nurse Practitioner; Visit Provider Nurse Practitioner
DX: R42 Dizziness and giddiness (principal); H55.00 Unspecified nystagmus
CPT/HCPCS: 70553; A9575

== ENCOUNTER → 2024-01-20 | Outpatient (CLI) | payer OTHER, SELFPAY ==
[2024-01-20 15:51] LABS: Vitamin B12 1110 pg/mL (211-911); Vitamin D,25 Hydroxy 21.2 ng/mL
[2024-01-22 11:10] LABS: ANTINUCLEAR ANTIBODIES DIRECT Positive (Negative); Anti-Centromere B Ab <0.2 AI (0.0-0.9); Anti-Chromatin 1.2 AI (0.0-0.9); Anti-Jo <0.2 AI (0.0-0.9); Anti-Scleroderma-70 AB <0.2 AI (0.0-0.9); Anti-dsDNA Ab 2 IU/mL (0-9); RNP Ab <0.2 AI (0.0-0.9); SJOGREN'S Anti-SS-A test < 0.2 AI (0.0-0.9); SJOGREN'S Anti-SS-B test < 0.2 AI (0.0-0.9); Smith Ab <0.2 AI (0.0-0.9)
== END | disposition home or self-care (01) ==
LOC: BIMLAB 13:17
PROVIDERS: PCP Internal Medicine; Referring Provider Internal Medicine; Visit Provider Internal Medicine
DX: R53.82 Chronic fatigue, unspecified (principal); R26.89 Other abnormalities of gait and mobility
CPT/HCPCS: 36415; 82306; 82607; 84443; 86038; 86225; 86235

== ENCOUNTER → 2024-02-17 | Outpatient (CLI) | payer OTHER, SELFPAY ==
[2024-02-17 10:15] LABS: EXAGEN MAILED SPECIMEN
[2024-02-17 12:10] LABS: Color, Urine Yellow (Yellow); Glucose, Dipstick Normal (Normal); Ketone-Dipstick Negative (Negative); Leukocyte Esterase-Dipstick Negative /ul (Negative); Nitrite-Dipstick Negative (Negative); Occult Blood-Urine Negative /ul (Negative); Protein-Dipstick Negative (Negative); Urine Bilirubin Dipstick Negative (Negative); Urine Clarity Clear (Clear); Urine Urobilinogen Normal (Normal)
[2024-02-17 12:18] LABS: Erythrocyte Sedimentation Rate 16 mm/hr (0-20)
[2024-02-17 12:20] LABS: Absolute Lymphocyte Count 1.88 X10^3/uL (0.83-4.51); Absolute Neutrophil Count 4.8 X10^3/uL (2.0-7.7); Basophil# 0.05 X10^3/uL; Basophil% 0.7 % (0-1); Eosinophil# 0.13 X10^3/uL; Eosinophils% 1.7 % (0-5); Hemoglobin 14.6 g/dL (13.0-16.5); Lymphocyte # 1.88 X10^3/ul (0.83-4.51); Lymphocyte % 24.9 % (19-41); Mean Corp Hgb Conc 34.8 g/dL (32-36); Mean Corpuscular Hgb 31.6 pg (27.0-32.0); Mean Corpuscular Volume 90.9 fL (80-94); Monocyte# 0.65 X10^3/uL; Monocyte% 8.6 % (0-10); NRBC Flagged by Analyzer 0 % (0-5); Neutrophil # 4.83 X10^3/uL (2.7-7.7); Neutrophil % 63.8 % (47-70); Platelet Count 221 K/mm3 (150-450); RBC Distribution Width CV 12.9 % (11.6-14.6); RBC Distribution Width SD 42.9 fl (35.1-43.9); Red Blood Count 4.62 M/mm3 (4.6-6.2); White Blood Count 7.6 K/mm3 (4.4-11.0)
[2024-02-17 12:30] LABS: Protein, Urine (Random) 10.9 mg/dL (<11.9); Protein:Creat Ratio 91 mg/g CRE (0-200)
[2024-02-17 12:34] LABS: ALB/GLOB Ratio 1.1 RATIO (0.9-2.4); AST(SGOT) 24 U/L (15-37); Alanine Aminotransfer ALT/SGPT 34 U/L (16-61); Albumin, Serum 3.8 g/dL (3.2-5.0); Alkaline Phosphatase 67 U/L (45-117); Anion Gap 6 (5-15); BUN 15 mg/dL (7-18); BUN/Creat Ratio 15.1 RATIO (10-20); CPK Total, Creatine Kinase 193 U/L (39-308); Calcium,Total 9.5 mg/dL (8.5-10.1); Chloride 106 mmol/L (98-107); Creatinine, Serum 0.99 mg/dL (0.70-1.30); EST Glomerular Filtration Rate 82 mL/min (>60); Est Glom Filt Rate - Afr Amer 99 mL/min (>60); Globulin 3.5 g/dL (2.2-4.2); Glucose 117 mg/dL (74-106); Potassium 4.1 mmol/L (3.5-5.1); Protein, Total 7.3 g/dL (6.4-8.2); Sodium Level 137 mmol/L (136-145)
[2024-02-17 13:05] LABS: Hepatitis B Surface Antibody Non-Reactive; Hepatitis B Surface Antigen Non-Reactive (Nonreactive); Hepatitis C Antibody Non-Reactive (Nonreactive)
== END | disposition home or self-care (01) ==
LOC: MTLAB 09:07
PROVIDERS: PCP Internal Medicine; Referring Provider Internal Medicine Rheumatology; Visit Provider Internal Medicine Rheumatology
DX: R42 Dizziness and giddiness (principal); R76.8 Other specified abnormal immunological findings in serum
CPT/HCPCS: 36415; 80053; 81002; 82550; 82570; 84156; 85025; 85652; 86706; 86803; 87340